=== PATIENT | female | born 2000 | race Caucasian/White ===

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

== ENCOUNTER 2023-12-06 20:36 | Emergency (ER) | payer OTHER ==
[2023-12-06 20:44] VITALS: BP 118/73; PULSE 80; RESP 16; TEMP 98.2; BMI 33.3
== END 2023-12-06 21:21 | disposition home or self-care (01) ==
LOC: FER 20:36
DX: R53.83 Other fatigue (principal)
CPT/HCPCS: 93005; 99283-25